=== PATIENT | male | born 1965 | race Caucasian/White ===

== ENCOUNTER 2018-04-11 20:21 | Inpatient (IN) | payer MEDICAID ==
[~2018-04-11] VITALS: Ht 182.9 cm; Wt 89.0 kg
[~2018-04-11 20:21] MED LIST: ACET-2119 PO; GUAI-178 PO; GUAI600T45 PO; LEVA15HF4 INH
[2018-04-11] MEDS ORDERED: LORazepam 2 mg/ml vial IV ONE (20:50)
[2018-04-11] MEDS ORDERED: normal saline 1000ML IV soln IVB ONE (20:50)
[2018-04-11 21:02] LABS: MEAN CORPUSCULAR HGB CONC 33.8 % (33.0-36.5); MONOCYTES # (AUTO) 0.7 X10'3 (0-0.9); NEUTROPHILS # (AUTO) 10.9 X10'3 (1.8-7.7)
[2018-04-11 21:09] LABS: BASOPHILS # (AUTO) 0.1 X10'3 (0-0.2); EOSINOPHILS # (AUTO) 0.1 X10'3 (0-0.9); HEMATOCRIT 43.5 % (42.0-52.0); HEMOGLOBIN 14.7 g/dl (14.0-17.9); LYMPHOCYTES % (AUTO) 14.7 % (21-51); MEAN CORPUSCULAR HEMOGLOBIN 30.2 PG (27.0-31.0); MEAN CORPUSCULAR VOLUME 89.3 FL (78-98); MEAN PLATELET VOLUME 8.5 FL (7.4-10.4); MONOCYTES % (AUTO) 5.1 % (2-12); NEUTROPHILS % (AUTO) 78.2 % (42-75); PLATELET COUNT 420 X10'3 (140-440); RED BLOOD COUNT 4.87 X10'6 (4.70-6.10); RED CELL DISTRIBUTION WIDTH 13.7 % (11.5-14.5); WHITE BLOOD COUNT 13.9 X10'3 (4.5-11.0)
[2018-04-11 21:14] LABS: D-DIMER 2.19 MG/L FEU (0-0.50); INR 1.5 INR; PARTIAL THROMBOPLASTIN TIME 30 SECONDS (22-32); PROTHROMBIN TIME 15.4 SECONDS (9.0-12.0)
[2018-04-11 21:17] LABS: ALANINE AMINOTRANSFERASE 202 U/L (12-78); ALBUMIN 2.9 G/DL (3.4-5.0); ALBUMIN/GLOBULIN RATIO 0.7 (1.1-1.5); ALKALINE PHOSPHATASE 116 IU/L (46-116); ANION GAP 14 (8-16); ASPARTATE AMINO TRANSFERASE 166 U/L (10-37); BILIRUBIN,TOTAL 1.5 MG/DL (0.1-1.0); BLOOD UREA NITROGEN 18 MG/DL (7-18); BUN/CREATININE RATIO 12.1 (5.4-32.0); CALCIUM 8.5 MG/DL (8.5-10.1); CHLORIDE 103 MMOL/L (99-107); CREATININE 1.49 MG/DL (0.60-1.10); GLUCOSE 94 MG/DL (70-104); POTASSIUM 5.2 MMOL/L (3.5-5.1); SODIUM 137 MMOL/L (135-145); TOTAL CARBON DIOXIDE 19.7 MMOL/L (24-32); eGFR 50 ML/MIN
[2018-04-11 21:35] LABS: URINE AMPHETAMINE SCREEN NEGATIVE (Neg); URINE BARBITUATE SCREEN NEGATIVE (Neg); URINE BENZODIAZEPINES SCREEN NEGATIVE (Neg); URINE CANNABINOID SCREEN POSITIVE (Neg); URINE COCAINE SCREEN NEGATIVE (Neg); URINE METHADONE SCREEN NEGATIVE (Neg); URINE OPIATE SCREEN NEGATIVE (Neg); URINE PHENCYCLIDINE SCREEN NEGATIVE (Neg)
[2018-04-11 21:38] LABS: CLARITY,URINE CLEAR (Clear); COLOR,URINE YELLOW (Yellow); GLUCOSE, URINE NEGATIVE (Neg); KETONES,URINE NEGATIVE (Neg); LEUKOCYTE ESTERASE ,URINE NEGATIVE (Neg); NITRITES, URINE NEGATIVE (Neg); OCCULT BLOOD,URINE TRACE-INTACT (Neg); PH,URINE 5.5 (4.8-8.0); PROTEIN,URINE NEGATIVE (Neg); UROBILINOGEN,URINE 0.2 E.U/dL (0.2-1.0)
[2018-04-11 21:40] LABS: UA COLLECTION TYPE VOIDED
[2018-04-11 21:49] LABS: BACTERIA,URINE FEW /HPF (Neg); RBC,URINE 0-2 /HPF (0-2); SQUAMOUS EPITHELIAL CELL,UR FEW /LPF (FEW); URIC ACID CRYSTALS 3+ /HPF (NEGATIVE); WBC,URINE 0-4 /HPF (0-4)
[2018-04-11] MEDS ORDERED: iohexol 350MG/ML 100ml bottle IV ONE (22:13)
[2018-04-11] MEDS ORDERED: furosemide 10 MG/1 ML 10ml inj IV ONE (23:20)
[2018-04-11] MEDS ORDERED: piperacillin/tazo 3.375gm/50ml 50 ML IV ONE (23:35)
[2018-04-12 00:48] LABS: MAGNESIUM 1.7 MG/DL (1.5-2.4)
[2018-04-12] MEDS ORDERED: ondansetron/PF 4mg/2ml inj IV PRN (02:00)
[2018-04-12] MEDS ORDERED: acetaminophen 325mg tablet PO PRN (02:00)
[2018-04-12] MEDS ORDERED: aspirin 325mg tablet PO ONE (02:30)
[2018-04-12] MEDS: piperacillin/tazo 3.375gm/50ml 50 ML IV SCH ×2 (02:41→08:02)
[2018-04-12] MEDS: furosemide 10 MG/1 ML 10ml inj IV SCH ×3 (02:41→19:51)
[2018-04-12 03:20] LABS: ABG BASE EXCESS -4.6 mmol/L (-2.0-3.0); ABG HCO3 18.2 mmol/L (22.0-26.0); ABG OXYGEN SATURATION 89.5 % (95-98); ABG PCO2 (T) 27.8 mmHg (35.0-48.0); ABG PH (T) 7.433 (7.350-7.450); ABG PO2 (T) 59.9 mmHg (83-108); ALLEN'S TEST Positive; FMetHb 0.1 % (0.3-1.12); FO2Hb 88.5 % (94-100); PATIENT TEMPERATURE 36.8; TOTAL HEMOGLOBIN 14.9 G/dl (14.0-18.0)
[2018-04-12] MEDS: enoxaparin 40mg/0.4ml syringe SUBCUT SCH (08:03)
[2018-04-12 09:06] LABS: ANION GAP 14 (8-16); BILIRUBIN,TOTAL 1.4 MG/DL (0.1-1.0); BLOOD UREA NITROGEN 18 MG/DL (7-18); BUN/CREATININE RATIO 10.8 (5.4-32.0); CALCIUM 8.4 MG/DL (8.5-10.1); CHLORIDE 102 MMOL/L (99-107); CREATININE 1.67 MG/DL (0.60-1.10); GLUCOSE 86 MG/DL (70-104); POTASSIUM 3.9 MMOL/L (3.5-5.1); SODIUM 138 MMOL/L (135-145); TOTAL CARBON DIOXIDE 21.6 MMOL/L (24-32); eGFR 44 ML/MIN
[2018-04-12 09:07] LABS: ALANINE AMINOTRANSFERASE 210 U/L (12-78); ALKALINE PHOSPHATASE 121 IU/L (46-116); ASPARTATE AMINO TRANSFERASE 140 U/L (10-37)
[2018-04-12 09:07] LABS: HEMATOCRIT 42.3 % (42.0-52.0); HEMOGLOBIN 14.4 g/dl (14.0-17.9); MEAN CORPUSCULAR HEMOGLOBIN 30.6 PG (27.0-31.0); MEAN CORPUSCULAR HGB CONC 34.1 % (33.0-36.5); MEAN CORPUSCULAR VOLUME 89.8 FL (78-98); MEAN PLATELET VOLUME 8.1 FL (7.4-10.4); PLATELET COUNT 355 X10'3 (140-440); RED BLOOD COUNT 4.71 X10'6 (4.70-6.10); RED CELL DISTRIBUTION WIDTH 13.9 % (11.5-14.5); WHITE BLOOD COUNT 12.1 X10'3 (4.5-11.0)
[2018-04-12 09:16] LABS: ALBUMIN/GLOBULIN RATIO 0.7 (1.1-1.5); TOTAL PROTEIN 7.3 G/DL (6.4-8.2)
[2018-04-12 09:47] LABS: PLATELET ESTIMATE NORMAL; TOTAL CELLS COUNTED 100
[2018-04-12 14:00] VITALS: BP 121/92
[2018-04-12 15:00] VITALS: BP 96/70
[2018-04-12] MEDS: levoFLOXACIN-Levaquin 500mg/D5 100 ML IV SCH (15:03)
[2018-04-12] MEDS: pantoprazole 40mg Tablet.DR PO SCH (15:03)
[2018-04-12] MEDS: lisinopril 2.5mg tablet PO SCH (16:05)
[2018-04-12] MEDS: aspirin 81mg tablet.DR PO SCH (16:05)
[2018-04-12] MEDS ORDERED: NO HOME MEDS (16:09)
[2018-04-12] MEDS: potassium Cl 20 mEq SR tablet PO SCH (17:42)
[2018-04-12 18:00] VITALS: BP 108/80
[2018-04-12] MEDS: lactobacillus rhamnosus 10,000 MMU CELLS/CAPSULE PO SCH (19:40)
[2018-04-12] MEDS: metoprolol tartrate 12.5mg (1/2 tablet) PO SCH (19:44)
[2018-04-12 22:00] VITALS: BP 105/72
[2018-04-13 02:00] VITALS: BP 107/74
[2018-04-13 05:02] LABS: BASOPHILS # (AUTO) 0.1 X10'3 (0-0.2); BASOPHILS % (AUTO) 0.9 % (0-1); EOSINOPHILS # (AUTO) 0.2 X10'3 (0-0.9); EOSINOPHILS % (AUTO) 2.1 % (0-6); HEMATOCRIT 42.4 % (42.0-52.0); HEMOGLOBIN 14.2 g/dl (14.0-17.9); LYMPHOCYTES # (AUTO) 2.4 X10'3 (1.1-4.8); LYMPHOCYTES % (AUTO) 22.9 % (21-51); MEAN CORPUSCULAR HEMOGLOBIN 30.4 PG (27.0-31.0); MEAN CORPUSCULAR HGB CONC 33.4 % (33.0-36.5); MEAN CORPUSCULAR VOLUME 91.1 FL (78-98); MEAN PLATELET VOLUME 8.4 FL (7.4-10.4); MONOCYTES # (AUTO) 0.8 X10'3 (0-0.9); NEUTROPHILS % (AUTO) 66.1 % (42-75); PLATELET COUNT 339 X10'3 (140-440); RED BLOOD COUNT 4.66 X10'6 (4.70-6.10); WHITE BLOOD COUNT 10.6 X10'3 (4.5-11.0)
[2018-04-13 05:35] LABS: ALBUMIN 2.4 G/DL (3.4-5.0); ANION GAP 12 (8-16); BLOOD UREA NITROGEN 23 MG/DL (7-18); CALCIUM 8.8 MG/DL (8.5-10.1); CHLORIDE 101 MMOL/L (99-107); CREATININE 1.44 MG/DL (0.60-1.10); GLUCOSE 105 MG/DL (70-104); POTASSIUM 3.5 MMOL/L (3.5-5.1); SODIUM 140 MMOL/L (135-145); TOTAL CARBON DIOXIDE 26.8 MMOL/L (24-32); eGFR 52 ML/MIN
[2018-04-13 06:00] VITALS: BP 111/79
[2018-04-13] MEDS: levoFLOXACIN-Levaquin 500mg/D5 100 ML IV SCH (07:18)
[2018-04-13] MEDS: aspirin 81mg tablet.DR PO SCH (07:19)
[2018-04-13] MEDS: lactobacillus rhamnosus 10,000 MMU CELLS/CAPSULE PO SCH ×2 (07:19→20:07)
[2018-04-13] MEDS: potassium Cl 20 mEq SR tablet PO SCH ×2 (07:19→20:09)
[2018-04-13] MEDS: furosemide 10 MG/1 ML 10ml inj IV SCH ×2 (07:19→22:20)
[2018-04-13] MEDS: pantoprazole 40mg Tablet.DR PO SCH (07:19)
[2018-04-13] MEDS: metoprolol tartrate 12.5mg (1/2 tablet) PO SCH ×2 (07:19→20:00)
[2018-04-13] MEDS: lisinopril 2.5mg tablet PO SCH (07:19)
[2018-04-13] MEDS: enoxaparin 40mg/0.4ml syringe SUBCUT SCH (07:20)
[2018-04-13 11:00] VITALS: BP 96/70
[2018-04-13 15:00] VITALS: BP 100/70
[2018-04-13] MEDS ORDERED: nitroGLYCERIN 0.4mg SUBLingual tab SL PRN (15:00)
[2018-04-13] MEDS ORDERED: CAFFEINE CITRATE 60 MG/3 ML injection vial IV PRN (15:00)
[2018-04-13] MEDS ORDERED: metoprolol tartrate 1mg/ml inj IV PRN (15:00)
[2018-04-13] MEDS ORDERED: regadenoson 0.4mg/5ml syringe IV ONE (15:00)
[2018-04-13] MEDS: vancomycin inj 1,250 MG in normal saline 250ml IV soln 250 ML IV SCH (16:29)
[2018-04-13 18:00] VITALS: BP 116/80
[2018-04-13] MEDS: neomy sulf/bacitrac zn/polymixin b oint 14.2 gm tube TP SCH (21:00)
[2018-04-13 22:00] VITALS: BP 107/76
[2018-04-14] VITALS (14 sets, daily range): BP systolic 95–116; BP diastolic 46–83
[2018-04-14] MEDS: vancomycin inj 1,250 MG in normal saline 250ml IV soln 250 ML IV SCH ×2 (04:24→15:12)
[2018-04-14 05:42] LABS: BASOPHILS # (AUTO) 0.1 X10'3 (0-0.2); BASOPHILS % (AUTO) 0.6 % (0-1); EOSINOPHILS # (AUTO) 0.2 X10'3 (0-0.9); EOSINOPHILS % (AUTO) 2.1 % (0-6); HEMATOCRIT 42.5 % (42.0-52.0); HEMOGLOBIN 14.3 g/dl (14.0-17.9); LYMPHOCYTES # (AUTO) 2.5 X10'3 (1.1-4.8); LYMPHOCYTES % (AUTO) 22.7 % (21-51); MEAN CORPUSCULAR HEMOGLOBIN 30.5 PG (27.0-31.0); MEAN CORPUSCULAR HGB CONC 33.6 % (33.0-36.5); MEAN CORPUSCULAR VOLUME 90.7 FL (78-98); MEAN PLATELET VOLUME 8.4 FL (7.4-10.4); NEUTROPHILS # (AUTO) 7.3 X10'3 (1.8-7.7); NEUTROPHILS % (AUTO) 65.6 % (42-75); PLATELET COUNT 372 X10'3 (140-440); RED BLOOD COUNT 4.68 X10'6 (4.70-6.10); RED CELL DISTRIBUTION WIDTH 14.4 % (11.5-14.5); WHITE BLOOD COUNT 11.2 X10'3 (4.5-11.0)
[2018-04-14 06:17] LABS: ALBUMIN 2.5 G/DL (3.4-5.0); ANION GAP 11 (8-16); BLOOD UREA NITROGEN 22 MG/DL (7-18); BUN/CREATININE RATIO 13.4 (5.4-32.0); CALCIUM 8.9 MG/DL (8.5-10.1); CHLORIDE 102 MMOL/L (99-107); CREATININE 1.64 MG/DL (0.60-1.10); GLUCOSE 86 MG/DL (70-104); POTASSIUM 3.6 MMOL/L (3.5-5.1); SODIUM 142 MMOL/L (135-145); TOTAL CARBON DIOXIDE 28.8 MMOL/L (24-32); eGFR 45 ML/MIN
[2018-04-14] MEDS: pantoprazole 40mg Tablet.DR PO SCH (07:39)
[2018-04-14] MEDS: lactobacillus rhamnosus 10,000 MMU CELLS/CAPSULE PO SCH ×2 (07:40→19:32)
[2018-04-14] MEDS: aspirin 81mg tablet.DR PO SCH (07:40)
[2018-04-14] MEDS: potassium Cl 20 mEq SR tablet PO SCH ×2 (07:41→17:32)
[2018-04-14] MEDS: enoxaparin 40mg/0.4ml syringe SUBCUT SCH (07:42)
[2018-04-14] MEDS: furosemide 10 MG/1 ML 10ml inj IV SCH ×2 (08:00→20:51)
[2018-04-14] MEDS: lisinopril 2.5mg tablet PO SCH (08:00)
[2018-04-14] MEDS: metoprolol tartrate 12.5mg (1/2 tablet) PO SCH ×2 (08:00→19:37)
[2018-04-14] MEDS: neomy sulf/bacitrac zn/polymixin b oint 14.2 gm tube TP SCH ×3 (08:00→21:00)
[2018-04-14 09:58] LABS: ALANINE AMINOTRANSFERASE 126 U/L (12-78); ALBUMIN 2.8 G/DL (3.4-5.0); ALBUMIN/GLOBULIN RATIO 0.6 (1.1-1.5); ALKALINE PHOSPHATASE 95 IU/L (46-116); ASPARTATE AMINO TRANSFERASE 51 U/L (10-37); BILIRUBIN,DIRECT 0.2 MG/DL (0-0.3); BILIRUBIN,TOTAL 0.6 MG/DL (0.1-1.0); TOTAL PROTEIN 7.3 G/DL (6.4-8.2)
[2018-04-14] MEDS ORDERED: pneumococcal 23-VAL P-sac vacc 25 mcg/0.5ml vial IMVAC ONE (10:00)
[2018-04-14] MEDS ORDERED: regadenoson 0.4mg/5ml syringe IV ONE (10:38)
[2018-04-14] MEDS ORDERED: CAFFEINE CITRATE 60 MG/3 ML injection vial IV ONE (10:38)
[2018-04-14] MEDS: levoFLOXACIN 500mg tablet PO SCH (11:00)
[2018-04-15 02:00] VITALS: BP 97/66
[2018-04-15] MEDS ORDERED: VANCOMYCIN LEVEL IV ONE (03:30)
[2018-04-15] MEDS: vancomycin inj 1,250 MG in normal saline 250ml IV soln 250 ML IV SCH ×2 (04:59→16:21)
[2018-04-15 06:04] LABS: BASOPHILS # (AUTO) 0.1 X10'3 (0-0.2); BASOPHILS % (AUTO) 0.7 % (0-1); EOSINOPHILS # (AUTO) 0.2 X10'3 (0-0.9); HEMATOCRIT 46.8 % (42.0-52.0); HEMOGLOBIN 15.6 g/dl (14.0-17.9); LYMPHOCYTES # (AUTO) 2.2 X10'3 (1.1-4.8); LYMPHOCYTES % (AUTO) 19.3 % (21-51); MEAN CORPUSCULAR HEMOGLOBIN 30.3 PG (27.0-31.0); MEAN CORPUSCULAR HGB CONC 33.3 % (33.0-36.5); MEAN CORPUSCULAR VOLUME 90.9 FL (78-98); MEAN PLATELET VOLUME 8.6 FL (7.4-10.4); MONOCYTES # (AUTO) 0.7 X10'3 (0-0.9); MONOCYTES % (AUTO) 6.4 % (2-12); NEUTROPHILS # (AUTO) 8.2 X10'3 (1.8-7.7); NEUTROPHILS % (AUTO) 71.6 % (42-75); PLATELET COUNT 386 X10'3 (140-440); RED BLOOD COUNT 5.15 X10'6 (4.70-6.10); RED CELL DISTRIBUTION WIDTH 14.5 % (11.5-14.5); WHITE BLOOD COUNT 11.5 X10'3 (4.5-11.0)
[2018-04-15 06:21] LABS: ALANINE AMINOTRANSFERASE 103 U/L (12-78); ALBUMIN 2.8 G/DL (3.4-5.0); ALBUMIN/GLOBULIN RATIO 0.6 (1.1-1.5); ALKALINE PHOSPHATASE 86 IU/L (46-116); ANION GAP 10 (8-16); ASPARTATE AMINO TRANSFERASE 40 U/L (10-37); BILIRUBIN,TOTAL 0.5 MG/DL (0.1-1.0); BLOOD UREA NITROGEN 31 MG/DL (7-18); BUN/CREATININE RATIO 17.7 (5.4-32.0); CALCIUM 9.4 MG/DL (8.5-10.1); CHLORIDE 99 MMOL/L (99-107); CREATININE 1.75 MG/DL (0.60-1.10); GLUCOSE 89 MG/DL (70-104); SODIUM 139 MMOL/L (135-145); TOTAL CARBON DIOXIDE 30.5 MMOL/L (24-32); TOTAL PROTEIN 7.5 G/DL (6.4-8.2); VANCOMYCIN,TROUGH 14.4 UG/ML (6.0-14.0); eGFR 41 ML/MIN
[2018-04-15 07:00] VITALS: BP 111/75
[2018-04-15] MEDS: furosemide 10 MG/1 ML 10ml inj IV SCH (07:40)
[2018-04-15] MEDS: lactobacillus rhamnosus 10,000 MMU CELLS/CAPSULE PO SCH ×2 (07:42→20:04)
[2018-04-15] MEDS: pantoprazole 40mg Tablet.DR PO SCH (07:42)
[2018-04-15] MEDS: enoxaparin 40mg/0.4ml syringe SUBCUT SCH (07:42)
[2018-04-15] MEDS: aspirin 81mg tablet.DR PO SCH (07:42)
[2018-04-15] MEDS: metoprolol tartrate 12.5mg (1/2 tablet) PO SCH ×2 (08:00→09:19)
[2018-04-15] MEDS: neomy sulf/bacitrac zn/polymixin b oint 14.2 gm tube TP SCH ×3 (08:53→20:05)
[2018-04-15] MEDS: lisinopril 2.5mg tablet PO SCH (08:55)
[2018-04-15] MEDS: potassium Cl 20 mEq SR tablet PO SCH ×2 (09:19→16:38)
[2018-04-15 11:00] VITALS: BP 111/76
[2018-04-15] MEDS: levoFLOXACIN 500mg tablet PO SCH (12:27)
[2018-04-15 15:00] VITALS: BP 103/71
[2018-04-15 19:00] VITALS: BP 102/46
[2018-04-15] MEDS ORDERED: furosemide 10 MG/1 ML 10ml inj IV SCH (20:00)
[2018-04-15] MEDS: metoprolol tartrate 25mg tablet PO SCH (20:04)
[2018-04-15 23:00] VITALS: BP 96/62
[2018-04-16] VITALS (7 sets, daily range): BP systolic 87–104; BP diastolic 54–75
[2018-04-16] MEDS: vancomycin inj 1,250 MG in normal saline 250ml IV soln 250 ML IV SCH (04:07)
[2018-04-16 06:36] LABS: ALANINE AMINOTRANSFERASE 85 U/L (12-78); ALBUMIN 2.8 G/DL (3.4-5.0); ALBUMIN/GLOBULIN RATIO 0.6 (1.1-1.5); ALKALINE PHOSPHATASE 89 IU/L (46-116); ANION GAP 10 (8-16); ASPARTATE AMINO TRANSFERASE 39 U/L (10-37); BILIRUBIN,TOTAL 0.4 MG/DL (0.1-1.0); BLOOD UREA NITROGEN 39 MG/DL (7-18); BUN/CREATININE RATIO 27.3 (5.4-32.0); CALCIUM 8.6 MG/DL (8.5-10.1); CHLORIDE 100 MMOL/L (99-107); CREATININE 1.43 MG/DL (0.60-1.10); GLUCOSE 103 MG/DL (70-104); POTASSIUM 4.3 MMOL/L (3.5-5.1); SODIUM 136 MMOL/L (135-145); TOTAL CARBON DIOXIDE 25.8 MMOL/L (24-32); TOTAL PROTEIN 7.4 G/DL (6.4-8.2); eGFR 52 ML/MIN
[2018-04-16 07:02] LABS: BASOPHILS # (AUTO) 0.1 X10'3 (0-0.2); BASOPHILS % (AUTO) 0.7 % (0-1); EOSINOPHILS # (AUTO) 0.3 X10'3 (0-0.9); EOSINOPHILS % (AUTO) 2.8 % (0-6); HEMATOCRIT 48.6 % (42.0-52.0); HEMOGLOBIN 15.9 g/dl (14.0-17.9); LYMPHOCYTES # (AUTO) 3.2 X10'3 (1.1-4.8); LYMPHOCYTES % (AUTO) 29.1 % (21-51); MEAN CORPUSCULAR HGB CONC 32.6 % (33.0-36.5); MEAN CORPUSCULAR VOLUME 91.9 FL (78-98); MEAN PLATELET VOLUME 8.5 FL (7.4-10.4); MONOCYTES # (AUTO) 0.8 X10'3 (0-0.9); MONOCYTES % (AUTO) 7.6 % (2-12); NEUTROPHILS # (AUTO) 6.6 X10'3 (1.8-7.7); NEUTROPHILS % (AUTO) 59.8 % (42-75); PLATELET COUNT 418 X10'3 (140-440); RED BLOOD COUNT 5.29 X10'6 (4.70-6.10); RED CELL DISTRIBUTION WIDTH 14.4 % (11.5-14.5)
[2018-04-16] MEDS: pantoprazole 40mg Tablet.DR PO SCH (08:07)
[2018-04-16] MEDS: furosemide 20 MG/2 ML vial IV SCH ×2 (08:07→20:00)
[2018-04-16] MEDS: potassium Cl 20 mEq SR tablet PO SCH ×2 (08:07→17:42)
[2018-04-16] MEDS: metoprolol tartrate 25mg tablet PO SCH ×2 (08:07→20:00)
[2018-04-16] MEDS: lactobacillus rhamnosus 10,000 MMU CELLS/CAPSULE PO SCH ×2 (08:07→19:48)
[2018-04-16] MEDS: lisinopril 2.5mg tablet PO SCH (08:07)
[2018-04-16] MEDS: aspirin 81mg tablet.DR PO SCH (08:07)
[2018-04-16] MEDS: neomy sulf/bacitrac zn/polymixin b oint 14.2 gm tube TP SCH ×3 (08:08→21:27)
[2018-04-16] MEDS: enoxaparin 40mg/0.4ml syringe SUBCUT SCH (08:08)
[2018-04-16] MEDS: levoFLOXACIN 500mg tablet PO SCH (11:42)
[2018-04-17 03:00] VITALS: BP 106/62
[2018-04-17 05:48] LABS: ALANINE AMINOTRANSFERASE 71 U/L (12-78); ALBUMIN 2.8 G/DL (3.4-5.0); ALBUMIN/GLOBULIN RATIO 0.7 (1.1-1.5); ALKALINE PHOSPHATASE 82 IU/L (46-116); ANION GAP 10 (8-16); ASPARTATE AMINO TRANSFERASE 30 U/L (10-37); BILIRUBIN,TOTAL 0.3 MG/DL (0.1-1.0); BLOOD UREA NITROGEN 37 MG/DL (7-18); BUN/CREATININE RATIO 25.5 (5.4-32.0); CALCIUM 8.7 MG/DL (8.5-10.1); CHLORIDE 101 MMOL/L (99-107); CREATININE 1.45 MG/DL (0.60-1.10); GLUCOSE 102 MG/DL (70-104); POTASSIUM 4.4 MMOL/L (3.5-5.1); SODIUM 138 MMOL/L (135-145); TOTAL CARBON DIOXIDE 27.1 MMOL/L (24-32); TOTAL PROTEIN 7.1 G/DL (6.4-8.2); eGFR 52 ML/MIN
[2018-04-17 06:30] VITALS: BP 106/75
[2018-04-17] MEDS: furosemide 20 MG/2 ML vial IV SCH ×2 (07:49→19:33)
[2018-04-17] MEDS: metoprolol tartrate 25mg tablet PO SCH ×2 (07:49→19:33)
[2018-04-17] MEDS: aspirin 81mg tablet.DR PO SCH (07:49)
[2018-04-17] MEDS: lactobacillus rhamnosus 10,000 MMU CELLS/CAPSULE PO SCH ×2 (07:49→19:34)
[2018-04-17] MEDS: enoxaparin 40mg/0.4ml syringe SUBCUT SCH (07:49)
[2018-04-17] MEDS: pantoprazole 40mg Tablet.DR PO SCH (07:49)
[2018-04-17] MEDS: lisinopril 2.5mg tablet PO SCH (07:49)
[2018-04-17] MEDS: potassium Cl 20 mEq SR tablet PO SCH ×2 (07:49→17:44)
[2018-04-17] MEDS: neomy sulf/bacitrac zn/polymixin b oint 14.2 gm tube TP SCH ×3 (08:16→21:15)
[2018-04-17 11:00] VITALS: BP 101/76
[2018-04-17] MEDS: levoFLOXACIN 500mg tablet PO SCH (11:26)
[2018-04-17 15:00] VITALS: BP 99/69
[2018-04-17 19:00] VITALS: BP 104/72
[2018-04-17] MEDS ORDERED: lactobacillus rhamnosus 10,000 MMU CELLS/CAPSULE PO SCH (20:00)
[2018-04-17 23:00] VITALS: BP 95/61
[2018-04-18 03:00] VITALS: BP 102/71
[2018-04-18 06:00] VITALS: BP 106/73
[2018-04-18 07:27] LABS: ALANINE AMINOTRANSFERASE 67 U/L (12-78); ALBUMIN 3.1 G/DL (3.4-5.0); ALBUMIN/GLOBULIN RATIO 0.7 (1.1-1.5); ALKALINE PHOSPHATASE 82 IU/L (46-116); ANION GAP 9 (8-16); ASPARTATE AMINO TRANSFERASE 30 U/L (10-37); BILIRUBIN,TOTAL 0.4 MG/DL (0.1-1.0); BLOOD UREA NITROGEN 43 MG/DL (7-18); CALCIUM 9.3 MG/DL (8.5-10.1); CHLORIDE 101 MMOL/L (99-107); CREATININE 1.79 MG/DL (0.60-1.10); GLUCOSE 92 MG/DL (70-104); POTASSIUM 4.5 MMOL/L (3.5-5.1); SODIUM 138 MMOL/L (135-145); TOTAL CARBON DIOXIDE 27.7 MMOL/L (24-32); TOTAL PROTEIN 7.7 G/DL (6.4-8.2); eGFR 40 ML/MIN
[2018-04-18] MEDS: metoprolol tartrate 25mg tablet PO SCH (07:53)
[2018-04-18] MEDS: aspirin 81mg tablet.DR PO SCH (07:53)
[2018-04-18] MEDS: lisinopril 2.5mg tablet PO SCH (07:53)
[2018-04-18] MEDS: lactobacillus rhamnosus 10,000 MMU CELLS/CAPSULE PO SCH (07:54)
[2018-04-18] MEDS: furosemide 20 MG/2 ML vial IV SCH (07:54)
[2018-04-18] MEDS: potassium Cl 20 mEq SR tablet PO SCH ×2 (07:54→17:30)
[2018-04-18] MEDS: pantoprazole 40mg Tablet.DR PO SCH (07:54)
[2018-04-18] MEDS: enoxaparin 40mg/0.4ml syringe SUBCUT SCH (07:54)
[2018-04-18] MEDS: neomy sulf/bacitrac zn/polymixin b oint 14.2 gm tube TP SCH ×2 (08:00→13:47)
[2018-04-18 11:00] VITALS: BP 109/71
[2018-04-18] MEDS: levoFLOXACIN 500mg tablet PO SCH (11:08)
[2018-04-18 15:00] VITALS: BP 110/63
[2018-04-18] MEDS ORDERED: METO25TA6 PO (15:09)
[2018-04-18] MEDS ORDERED: LEVO500T89 PO (15:09)
[2018-04-18] MEDS ORDERED: NITR0.4T51 SL (15:09)
[2018-04-18] MEDS ORDERED: FURO-150 PO (15:09)
[2018-04-18] MEDS ORDERED: LISI2.5T2 PO (15:09)
[2018-04-18] MEDS ORDERED: ASPI-1071 PO (15:09)
[2018-04-18] MEDS ORDERED: NEOM28.37 TP (15:09)
== END 2018-04-18 18:12 | disposition home or self-care (01) | DRG 720 ==
LOC: ER 20:22 → ED HOLD 04-12 01:58 → PCU 3S 04-12 12:08
PROVIDERS: ADMIT Internal Medicine; ATTEND Internal Medicine
PROC: B32T1ZZ Computerized Tomography (CT Scan) of Left Pulmonary Artery using Low Osmolar Contrast (ICD-10-PCS; 2018-04-11)
PROC: B3201ZZ Computerized Tomography (CT Scan) of Thoracic Aorta using Low Osmolar Contrast (ICD-10-PCS; 2018-04-11)
PROC: B32S1ZZ Computerized Tomography (CT Scan) of Right Pulmonary Artery using Low Osmolar Contrast (ICD-10-PCS; 2018-04-11)
PROC: 5A09357 Assistance with Respiratory Ventilation, Less than 24 Consecutive Hours, Continuous Positive Airway Pressure (ICD-10-PCS; principal; 2018-04-12)
PROC: 4A02XM4 Measurement of Cardiac Total Activity, External Approach (ICD-10-PCS; 2018-04-14)
PROC: 3E033HZ Introduction of Radioactive Substance into Peripheral Vein, Percutaneous Approach (ICD-10-PCS; 2018-04-14)
DX: A41.9 Sepsis, unspecified organism (principal); I50.23 Acute on chronic systolic (congestive) heart failure; N17.9 Acute kidney failure, unspecified; K21.9 Gastro-esophageal reflux disease without esophagitis; K52.9 Noninfective gastroenteritis and colitis, unspecified; E87.5 Hyperkalemia; F12.90 Cannabis use, unspecified, uncomplicated; Z60.2 Problems related to living alone; R94.5 Abnormal results of liver function studies; Z79.82 Long term (current) use of aspirin; Z87.01 Personal history of pneumonia (recurrent); Z87.442 Personal history of urinary calculi; Z23 Encounter for immunization; Z79.899 Other long term (current) drug therapy
CPT/HCPCS: 36415; 36600; 71045; 71046; 71275; 78452; 80048; 80053; 80076; 80202; 80305; 81001; 82803; 83605; 83690; 83735; 83880; 84145; 84484; 85018; 85025; 85379; 85610; 85730; 87040; 87070; 87075; 87077; 87102; 87186; 93005; 93017; 93306; 93970; 94660; 94760; 96361; 96374; 96375; 99285; A6250; A6449; A9500; J1650; J1940; J1956; J2060; J2543; J3370; J7030; Q9967

== ENCOUNTER 2018-04-23 20:59 | Inpatient (IN) | payer MEDICAID ==
[~2018-04-23] VITALS: Ht 182.9 cm; Wt 79.0 kg
[~2018-04-23 20:59] MED LIST changes: -ACET-2119 PO; +ASPI-1071 PO; +FURO-150 PO; -GUAI-178 PO; -GUAI600T45 PO; -LEVA15HF4 INH; +LEVO500T89 PO; +LISI2.5T2 PO; +METO25TA6 PO; +NEOM28.37 TP; +NITR0.4T51 SL; +NO HOME MEDS
[2018-04-23] MEDS ORDERED: LORazepam 2 mg/ml vial IV ONE (21:20)
[2018-04-23] MEDS ORDERED: ondansetron/PF 4mg/2ml inj IV ONE (21:20)
[2018-04-23 21:22] LABS: BASOPHILS # (AUTO) 0.1 X10'3 (0-0.2); BASOPHILS % (AUTO) 1.4 % (0-1); EOSINOPHILS % (AUTO) 0.4 % (0-6); HEMATOCRIT 43.6 % (42.0-52.0); HEMOGLOBIN 14.6 g/dl (14.0-17.9); LYMPHOCYTES # (AUTO) 2.4 X10'3 (1.1-4.8); MEAN CORPUSCULAR HEMOGLOBIN 30.2 PG (27.0-31.0); MEAN CORPUSCULAR HGB CONC 33.6 % (33.0-36.5); MEAN CORPUSCULAR VOLUME 89.9 FL (78-98); MEAN PLATELET VOLUME 8.7 FL (7.4-10.4); MONOCYTES # (AUTO) 0.8 X10'3 (0-0.9); MONOCYTES % (AUTO) 7.6 % (2-12); NEUTROPHILS # (AUTO) 6.7 X10'3 (1.8-7.7); NEUTROPHILS % (AUTO) 66.6 % (42-75); PLATELET COUNT 197 X10'3 (140-440); RED BLOOD COUNT 4.85 X10'6 (4.70-6.10); RED CELL DISTRIBUTION WIDTH 13.6 % (11.5-14.5)
[2018-04-23 21:34] LABS: INR 1.3 INR; PARTIAL THROMBOPLASTIN TIME 26 SECONDS (22-32); PROTHROMBIN TIME 13.1 SECONDS (9.0-12.0)
[2018-04-23 21:38] LABS: ALANINE AMINOTRANSFERASE 191 U/L (12-78); ALBUMIN 3.4 G/DL (3.4-5.0); ALBUMIN/GLOBULIN RATIO 0.8 (1.1-1.5); ALKALINE PHOSPHATASE 142 IU/L (46-116); ANION GAP 11 (8-16); ASPARTATE AMINO TRANSFERASE 143 U/L (10-37); BILIRUBIN,TOTAL 1.3 MG/DL (0.1-1.0); BLOOD UREA NITROGEN 26 MG/DL (7-18); CALCIUM 8.9 MG/DL (8.5-10.1); CHLORIDE 100 MMOL/L (99-107); CREATININE 1.62 MG/DL (0.60-1.10); GLUCOSE 124 MG/DL (70-104); POTASSIUM 4.6 MMOL/L (3.5-5.1); SODIUM 135 MMOL/L (135-145); TOTAL PROTEIN 7.6 G/DL (6.4-8.2); eGFR 45 ML/MIN
[2018-04-23] MEDS ORDERED: normal saline 1000ML IV soln IVB ONE (21:55)
[2018-04-23 22:03] LABS: URINE AMPHETAMINE SCREEN NEGATIVE (Neg); URINE BARBITUATE SCREEN NEGATIVE (Neg); URINE BENZODIAZEPINES SCREEN NEGATIVE (Neg); URINE CANNABINOID SCREEN POSITIVE (Neg); URINE COCAINE SCREEN NEGATIVE (Neg); URINE METHADONE SCREEN NEGATIVE (Neg); URINE OPIATE SCREEN POSITIVE (Neg); URINE PHENCYCLIDINE SCREEN NEGATIVE (Neg)
[2018-04-23] MEDS ORDERED: metoprolol tartrate 1mg/ml inj IV ONE (22:40)
[2018-04-23] MEDS ORDERED: ONDA4TAB9 SL (23:00)
[2018-04-24] MEDS ORDERED: potassium Cl 20 mEq SR tablet PO PRN ×2 (00:25)
[2018-04-24] MEDS ORDERED: magnesium 4gm in 100ml NS 100 ML IV PRN (00:25)
[2018-04-24] MEDS ORDERED: nitroGLYCERIN 0.4mg SUBLingual tab SL PRN (00:25)
[2018-04-24] MEDS ORDERED: magnesium Cl slow-release 64mg tablet PO PRN (00:25)
[2018-04-24] MEDS ORDERED: potassium Cl 40MEQ/NS 500ml 500 ML IV PRN ×2 (00:25)
[2018-04-24] MEDS ORDERED: magnesium 1gm/100ml D5W IVPB 100 ML IV PRN (00:25)
[2018-04-24] MEDS ORDERED: magnesium hydroxide 30ml (MOM) UD suspension PO PRN (00:25)
[2018-04-24] MEDS ORDERED: mag hydrox/Alum hydrox/simeth 30ml oral suspension PO PRN (00:25)
[2018-04-24 01:20] VITALS: BP 93/67
[2018-04-24 03:25] LABS: MAGNESIUM 2.1 MG/DL (1.5-2.4)
[2018-04-24] MEDS: ondansetron/PF 4mg/2ml inj IV PRN (06:46)
[2018-04-24] MEDS: furosemide 20MG tablet PO SCH ×2 (08:00→10:08)
[2018-04-24] MEDS: neomy sulf/bacitrac zn/polymixin b oint 14.2 gm tube TP SCH ×3 (08:00→20:15)
[2018-04-24] MEDS: lisinopril 2.5mg tablet PO SCH ×2 (08:00→10:08)
[2018-04-24] MEDS: metoprolol tartrate 25mg tablet PO SCH (08:00)
[2018-04-24] MEDS: K and/or MAG REPLACEMENT MC SCH (08:00)
[2018-04-24] MEDS: aspirin 81mg tablet.DR PO SCH (08:10)
[2018-04-24] MEDS: heparin, porcine 5000 units/ml vial SQ SCH ×2 (08:14→20:04)
[2018-04-24 10:00] VITALS: BP 109/80
[2018-04-24] MEDS: pantoprazole 40 MG vial IV SCH (12:03)
[2018-04-24 18:00] VITALS: BP 86/55
[2018-04-24] MEDS: metoprolol tartrate 12.5mg (1/2 tablet) PO SCH (20:00)
[2018-04-24] MEDS: ondansetron 4mg rapidly disintigrating tab PO PRN (20:04)
[2018-04-24 20:20] VITALS: BP 100/71
[2018-04-24 21:55] VITALS: BP 90/67
[2018-04-25 05:49] LABS: BASOPHILS # (AUTO) 0.1 X10'3 (0-0.2); BASOPHILS % (AUTO) 1.1 % (0-1); EOSINOPHILS # (AUTO) 0.1 X10'3 (0-0.9); EOSINOPHILS % (AUTO) 1.4 % (0-6); HEMATOCRIT 37.7 % (42.0-52.0); HEMOGLOBIN 13.1 g/dl (14.0-17.9); LYMPHOCYTES # (AUTO) 2.1 X10'3 (1.1-4.8); LYMPHOCYTES % (AUTO) 20.5 % (21-51); MEAN CORPUSCULAR HEMOGLOBIN 31.2 PG (27.0-31.0); MEAN CORPUSCULAR HGB CONC 34.7 % (33.0-36.5); MEAN CORPUSCULAR VOLUME 89.9 FL (78-98); MEAN PLATELET VOLUME 9.3 FL (7.4-10.4); MONOCYTES # (AUTO) 0.8 X10'3 (0-0.9); MONOCYTES % (AUTO) 7.9 % (2-12); NEUTROPHILS % (AUTO) 69.1 % (42-75); PLATELET COUNT 179 X10'3 (140-440); RED BLOOD COUNT 4.19 X10'6 (4.70-6.10); RED CELL DISTRIBUTION WIDTH 13.4 % (11.5-14.5); WHITE BLOOD COUNT 10.1 X10'3 (4.5-11.0)
[2018-04-25 06:13] LABS: ALANINE AMINOTRANSFERASE 454 U/L (12-78); ALBUMIN 2.8 G/DL (3.4-5.0); ALBUMIN/GLOBULIN RATIO 0.8 (1.1-1.5); ALKALINE PHOSPHATASE 122 IU/L (46-116); ANION GAP 12 (8-16); ASPARTATE AMINO TRANSFERASE 334 U/L (10-37); BILIRUBIN,TOTAL 1.9 MG/DL (0.1-1.0); BLOOD UREA NITROGEN 28 MG/DL (7-18); BUN/CREATININE RATIO 20.9 (5.4-32.0); CALCIUM 8.4 MG/DL (8.5-10.1); CHLORIDE 102 MMOL/L (99-107); CREATININE 1.34 MG/DL (0.60-1.10); GLUCOSE 86 MG/DL (70-104); MAGNESIUM 1.8 MG/DL (1.5-2.4); POTASSIUM 4.5 MMOL/L (3.5-5.1); SODIUM 136 MMOL/L (135-145); TOTAL CARBON DIOXIDE 22.4 MMOL/L (24-32); TOTAL PROTEIN 6.2 G/DL (6.4-8.2); eGFR 56 ML/MIN
[2018-04-25 07:20] VITALS: BP 117/73
[2018-04-25] MEDS: K and/or MAG REPLACEMENT MC SCH (08:00)
[2018-04-25] MEDS: aspirin 81mg tablet.DR PO SCH (08:07)
[2018-04-25] MEDS: furosemide 20MG tablet PO SCH (08:07)
[2018-04-25] MEDS: metoprolol tartrate 12.5mg (1/2 tablet) PO SCH (08:08)
[2018-04-25] MEDS: lisinopril 2.5mg tablet PO SCH (08:08)
[2018-04-25] MEDS: heparin, porcine 5000 units/ml vial SQ SCH ×2 (08:09→20:09)
[2018-04-25] MEDS: pantoprazole 40 MG vial IV SCH (08:09)
[2018-04-25] MEDS: neomy sulf/bacitrac zn/polymixin b oint 14.2 gm tube TP SCH ×3 (08:10→20:16)
[2018-04-25 10:00] VITALS: BP 107/81
[2018-04-25] MEDS: ondansetron 4mg rapidly disintigrating tab PO PRN ×2 (13:07→21:54)
[2018-04-25] MEDS ORDERED: metoprolol tartrate 12.5mg (1/2 tablet) PO ONE (14:00)
[2018-04-25] MEDS: furosemide 20 MG/2 ML vial IV SCH ×2 (14:14→20:09)
[2018-04-25] MEDS: acetaminophen 325mg tablet PO PRN ×2 (14:27→21:57)
[2018-04-25 15:00] VITALS: BP 102/70
[2018-04-25 18:00] VITALS: BP 90/66
[2018-04-25] MEDS: metoprolol tartrate 25mg tablet PO SCH (20:08)
[2018-04-25 22:00] VITALS: BP 101/72
[2018-04-26 05:44] LABS: BASOPHILS # (AUTO) 0.1 X10'3 (0-0.2); BASOPHILS % (AUTO) 1.5 % (0-1); EOSINOPHILS # (AUTO) 0.1 X10'3 (0-0.9); EOSINOPHILS % (AUTO) 1.4 % (0-6); HEMATOCRIT 37.8 % (42.0-52.0); LYMPHOCYTES # (AUTO) 1.9 X10'3 (1.1-4.8); LYMPHOCYTES % (AUTO) 22.7 % (21-51); MEAN CORPUSCULAR HEMOGLOBIN 31.1 PG (27.0-31.0); MEAN CORPUSCULAR HGB CONC 34.5 % (33.0-36.5); MEAN CORPUSCULAR VOLUME 90.3 FL (78-98); MEAN PLATELET VOLUME 9.4 FL (7.4-10.4); MONOCYTES # (AUTO) 0.8 X10'3 (0-0.9); MONOCYTES % (AUTO) 9.2 % (2-12); NEUTROPHILS # (AUTO) 5.3 X10'3 (1.8-7.7); NEUTROPHILS % (AUTO) 65.2 % (42-75); PLATELET COUNT 165 X10'3 (140-440); RED BLOOD COUNT 4.18 X10'6 (4.70-6.10); RED CELL DISTRIBUTION WIDTH 13.4 % (11.5-14.5); WHITE BLOOD COUNT 8.2 X10'3 (4.5-11.0)
[2018-04-26 06:00] VITALS: BP 97/69
[2018-04-26 06:09] LABS: ALANINE AMINOTRANSFERASE 357 U/L (12-78); ALBUMIN 2.7 G/DL (3.4-5.0); ALBUMIN/GLOBULIN RATIO 0.7 (1.1-1.5); ALKALINE PHOSPHATASE 121 IU/L (46-116); ANION GAP 6 (8-16); ASPARTATE AMINO TRANSFERASE 162 U/L (10-37); BILIRUBIN,TOTAL 1.1 MG/DL (0.1-1.0); BLOOD UREA NITROGEN 26 MG/DL (7-18); BUN/CREATININE RATIO 18.3 (5.4-32.0); CALCIUM 8.6 MG/DL (8.5-10.1); CHLORIDE 102 MMOL/L (99-107); CREATININE 1.42 MG/DL (0.60-1.10); GLUCOSE 87 MG/DL (70-104); MAGNESIUM 1.7 MG/DL (1.5-2.4); POTASSIUM 4.1 MMOL/L (3.5-5.1); SODIUM 137 MMOL/L (135-145); TOTAL CARBON DIOXIDE 28.9 MMOL/L (24-32); TOTAL PROTEIN 6.4 G/DL (6.4-8.2); eGFR 53 ML/MIN
[2018-04-26] MEDS: lisinopril 2.5mg tablet PO SCH (08:00)
[2018-04-26] MEDS: neomy sulf/bacitrac zn/polymixin b oint 14.2 gm tube TP SCH ×3 (08:00→21:00)
[2018-04-26] MEDS: K and/or MAG REPLACEMENT MC SCH (08:00)
[2018-04-26] MEDS: metoprolol tartrate 25mg tablet PO SCH ×2 (09:19→21:45)
[2018-04-26] MEDS: furosemide 20 MG/2 ML vial IV SCH ×2 (09:19→21:45)
[2018-04-26] MEDS: aspirin 81mg tablet.DR PO SCH (09:20)
[2018-04-26] MEDS: heparin, porcine 5000 units/ml vial SQ SCH ×2 (09:20→21:45)
[2018-04-26] MEDS: pantoprazole 40mg Tablet.DR PO SCH (09:20)
[2018-04-26 10:00] VITALS: BP 101/75
[2018-04-26 18:00] VITALS: BP 103/77
[2018-04-26] MEDS: ondansetron 4mg rapidly disintigrating tab PO PRN (21:46)
[2018-04-26 22:00] VITALS: BP 115/79
[2018-04-27 06:00] VITALS: BP 95/65
[2018-04-27 06:27] LABS: ALANINE AMINOTRANSFERASE 318 U/L (12-78); ALBUMIN 2.7 G/DL (3.4-5.0); ALBUMIN/GLOBULIN RATIO 0.7 (1.1-1.5); ALKALINE PHOSPHATASE 122 IU/L (46-116); ANION GAP 6 (8-16); ASPARTATE AMINO TRANSFERASE 123 U/L (10-37); BLOOD UREA NITROGEN 26 MG/DL (7-18); BUN/CREATININE RATIO 17.4 (5.4-32.0); CALCIUM 8.5 MG/DL (8.5-10.1); CHLORIDE 102 MMOL/L (99-107); CREATININE 1.49 MG/DL (0.60-1.10); GLUCOSE 96 MG/DL (70-104); MAGNESIUM 1.7 MG/DL (1.5-2.4); POTASSIUM 3.4 MMOL/L (3.5-5.1); SODIUM 138 MMOL/L (135-145); TOTAL CARBON DIOXIDE 29.9 MMOL/L (24-32); TOTAL PROTEIN 6.4 G/DL (6.4-8.2); eGFR 50 ML/MIN
[2018-04-27 07:07] LABS: BASOPHILS # (AUTO) 0.1 X10'3 (0-0.2); BASOPHILS % (AUTO) 0.9 % (0-1); EOSINOPHILS # (AUTO) 0.1 X10'3 (0-0.9); EOSINOPHILS % (AUTO) 1.3 % (0-6); HEMATOCRIT 38.3 % (42.0-52.0); HEMOGLOBIN 13.1 g/dl (14.0-17.9); LYMPHOCYTES # (AUTO) 2.2 X10'3 (1.1-4.8); LYMPHOCYTES % (AUTO) 24.3 % (21-51); MEAN CORPUSCULAR HEMOGLOBIN 30.6 PG (27.0-31.0); MEAN CORPUSCULAR HGB CONC 34.1 % (33.0-36.5); MEAN CORPUSCULAR VOLUME 89.6 FL (78-98); MEAN PLATELET VOLUME 9.4 FL (7.4-10.4); MONOCYTES % (AUTO) 10.5 % (2-12); NEUTROPHILS # (AUTO) 5.7 X10'3 (1.8-7.7); PLATELET COUNT 202 X10'3 (140-440); RED BLOOD COUNT 4.28 X10'6 (4.70-6.10); RED CELL DISTRIBUTION WIDTH 13.3 % (11.5-14.5); WHITE BLOOD COUNT 9.1 X10'3 (4.5-11.0)
[2018-04-27] MEDS: metoprolol succinate 25mg (24-HOUR) SR. Tablet PO SCH (08:00)
[2018-04-27] MEDS: K and/or MAG REPLACEMENT MC SCH (08:00)
[2018-04-27] MEDS ORDERED: metoprolol succinate 25mg (24-HOUR) SR. Tablet PO SCH (08:00)
[2018-04-27] MEDS: furosemide 20 MG/2 ML vial IV SCH ×3 (08:00→22:28)
[2018-04-27] MEDS: pantoprazole 40mg Tablet.DR PO SCH (08:47)
[2018-04-27] MEDS: aspirin 81mg tablet.DR PO SCH (08:47)
[2018-04-27] MEDS: neomy sulf/bacitrac zn/polymixin b oint 14.2 gm tube TP SCH ×3 (08:48→21:00)
[2018-04-27] MEDS: heparin, porcine 5000 units/ml vial SQ SCH ×2 (08:50→22:27)
[2018-04-27] MEDS: potassium Cl 20 mEq SR tablet PO PRN ×3 (08:59→22:28)
[2018-04-27 10:00] VITALS: BP 102/68
[2018-04-27 10:24] VITALS: BP 114/81
[2018-04-27] MEDS: acetaminophen 325mg tablet PO PRN ×2 (13:07→20:54)
[2018-04-27] MEDS: ondansetron/PF 4mg/2ml inj IV PRN (14:59)
[2018-04-27 18:00] VITALS: BP 115/68
[2018-04-27] MEDS ORDERED: lisinopril 2.5mg tablet PO SCH (21:00)
[2018-04-27 22:00] VITALS: BP 109/80
[2018-04-28] MEDS: potassium Cl 20 mEq SR tablet PO PRN (04:36)
[2018-04-28 06:00] VITALS: BP 109/80
[2018-04-28] MEDS: neomy sulf/bacitrac zn/polymixin b oint 14.2 gm tube TP SCH ×2 (08:00→12:43)
[2018-04-28] MEDS: K and/or MAG REPLACEMENT MC SCH (08:00)
[2018-04-28] MEDS: heparin, porcine 5000 units/ml vial SQ SCH (08:42)
[2018-04-28] MEDS: aspirin 81mg tablet.DR PO SCH (08:43)
[2018-04-28] MEDS: pantoprazole 40mg Tablet.DR PO SCH (08:43)
[2018-04-28] MEDS: furosemide 20 MG/2 ML vial IV SCH (08:47)
[2018-04-28] MEDS: metoprolol succinate 25mg (24-HOUR) SR. Tablet PO SCH (08:47)
== END 2018-04-28 13:35 | disposition home or self-care (01) | DRG 194 ==
LOC: ER 20:59 → ED HOLD 04-24 00:24 → OBSVTOIN 04-24 00:24 → ORTHO 4S 04-24 01:15
PROVIDERS: ADMIT Hospitalist; ATTEND Family Medicine
DX: I13.0 Hypertensive heart and chronic kidney disease with heart failure and stage 1 through stage 4 chronic kidney disease, or unspecified chronic kidney disease (principal); N17.9 Acute kidney failure, unspecified; I42.7 Cardiomyopathy due to drug and external agent; N18.3 Chronic kidney disease, stage 3 (moderate); F12.90 Cannabis use, unspecified, uncomplicated; I50.23 Acute on chronic systolic (congestive) heart failure; F15.90 Other stimulant use, unspecified, uncomplicated; I25.10 Atherosclerotic heart disease of native coronary artery without angina pectoris; K21.9 Gastro-esophageal reflux disease without esophagitis; R74.0 Nonspecific elevation of levels of transaminase and lactic acid dehydrogenase [LDH]; Z60.2 Problems related to living alone; Z79.899 Other long term (current) drug therapy; Z87.01 Personal history of pneumonia (recurrent); Z87.442 Personal history of urinary calculi; Z91.19 Patient's noncompliance with other medical treatment and regimen; Z79.82 Long term (current) use of aspirin; Z71.51 Drug abuse counseling and surveillance of drug abuser
CPT/HCPCS: 36415; 71045; 76700; 80053; 80305; 83735; 83880; 84484; 85025; 85610; 85730; 87070; 93005; 96361; 96374; 96375; 99291; C9113; J1644; J1940; J2060; J2405; J3490

== ENCOUNTER 2018-05-05 18:12 | Emergency (ER) | payer MEDICAID ==
[~2018-05-05] VITALS: Ht 182.9 cm; Wt 88.6 kg
[~2018-05-05 18:12] MED LIST changes: -LEVO500T89 PO; -NO HOME MEDS
[2018-05-05] MEDS ORDERED: nitroGLYCERIN 0.4mg SUBLingual tab SL PRN (18:30)
[2018-05-05 19:04] LABS: BASOPHILS # (AUTO) 0.1 X10'3 (0-0.2); BASOPHILS % (AUTO) 0.6 % (0-1); EOSINOPHILS % (AUTO) 0.4 % (0-6); HEMATOCRIT 42.4 % (42.0-52.0); HEMOGLOBIN 14.2 g/dl (14.0-17.9); LYMPHOCYTES # (AUTO) 3.4 X10'3 (1.1-4.8); MEAN CORPUSCULAR HEMOGLOBIN 29.9 PG (27.0-31.0); MEAN CORPUSCULAR HGB CONC 33.4 % (33.0-36.5); MEAN CORPUSCULAR VOLUME 89.5 FL (78-98); MEAN PLATELET VOLUME 8.7 FL (7.4-10.4); MONOCYTES # (AUTO) 0.8 X10'3 (0-0.9); MONOCYTES % (AUTO) 7.4 % (2-12); NEUTROPHILS # (AUTO) 6.7 X10'3 (1.8-7.7); NEUTROPHILS % (AUTO) 60.6 % (42-75); PLATELET COUNT 394 X10'3 (140-440); RED BLOOD COUNT 4.74 X10'6 (4.70-6.10); RED CELL DISTRIBUTION WIDTH 15.2 % (11.5-14.5)
[2018-05-05 19:17] LABS: INR 1.4 INR; PARTIAL THROMBOPLASTIN TIME 26 SECONDS (22-32); PROTHROMBIN TIME 14.4 SECONDS (9.0-12.0)
[2018-05-05 19:20] LABS: ALANINE AMINOTRANSFERASE 126 U/L (12-78); ALBUMIN 3.2 G/DL (3.4-5.0); ALBUMIN/GLOBULIN RATIO 0.8 (1.1-1.5); ALKALINE PHOSPHATASE 144 IU/L (46-116); ANION GAP 12 (8-16); ASPARTATE AMINO TRANSFERASE 54 U/L (10-37); BILIRUBIN,TOTAL 1.2 MG/DL (0.1-1.0); BLOOD UREA NITROGEN 26 MG/DL (7-18); BUN/CREATININE RATIO 16.6 (5.4-32.0); CALCIUM 8.5 MG/DL (8.5-10.1); CHLORIDE 96 MMOL/L (99-107); CREATININE 1.57 MG/DL (0.60-1.10); GLUCOSE 103 MG/DL (70-104); POTASSIUM 3.9 MMOL/L (3.5-5.1); SODIUM 131 MMOL/L (135-145); TOTAL CARBON DIOXIDE 23.3 MMOL/L (24-32); TOTAL PROTEIN 7.1 G/DL (6.4-8.2); eGFR 47 ML/MIN
[2018-05-05] MEDS ORDERED: furosemide 10 MG/1 ML 10ml inj IV ONE (22:35)
[2018-05-05 23:29] LABS: CLARITY,URINE CLEAR (Clear); COLOR,URINE YELLOW (Yellow); GLUCOSE, URINE NEGATIVE (Neg); KETONES,URINE NEGATIVE (Neg); LEUKOCYTE ESTERASE ,URINE NEGATIVE (Neg); NITRITES, URINE NEGATIVE (Neg); OCCULT BLOOD,URINE NEGATIVE (Neg); PROTEIN,URINE NEGATIVE (Neg); UA COLLECTION TYPE URINAL; UROBILINOGEN,URINE 0.2 E.U/dL (0.2-1.0)
[2018-05-05 23:42] LABS: URINE AMPHETAMINE SCREEN NEGATIVE (Neg); URINE BARBITUATE SCREEN NEGATIVE (Neg); URINE BENZODIAZEPINES SCREEN NEGATIVE (Neg); URINE CANNABINOID SCREEN POSITIVE (Neg); URINE COCAINE SCREEN NEGATIVE (Neg); URINE METHADONE SCREEN NEGATIVE (Neg); URINE OPIATE SCREEN NEGATIVE (Neg); URINE PHENCYCLIDINE SCREEN NEGATIVE (Neg)
[2018-05-06 00:57] VITALS: BP 98/62
== END 2018-05-06 01:01 | disposition home or self-care (01) ==
LOC: ER 18:13
DX: I50.9 Heart failure, unspecified (principal); K21.9 Gastro-esophageal reflux disease without esophagitis; F12.90 Cannabis use, unspecified, uncomplicated; I51.7 Cardiomegaly; R00.0 Tachycardia, unspecified; Z60.2 Problems related to living alone; Z98.890 Other specified postprocedural states; Z79.82 Long term (current) use of aspirin; Z79.899 Other long term (current) drug therapy
CPT/HCPCS: 36415; 71045; 80053; 80305; 81003; 83880; 84484; 85025; 85610; 85730; 93005; 96374; 99285; J1940

== ENCOUNTER 2018-05-18 09:57 | Inpatient (IN) | payer MEDICAID ==
[~2018-05-18] VITALS: Ht 182.9 cm; Wt 92.5 kg
[2018-05-18] MEDS ORDERED: furosemide 20 MG/2 ML vial IV ONE (10:15)
[2018-05-18] MEDS ORDERED: furosemide 10 MG/1 ML 10ml inj IV ONE (10:15)
[2018-05-18 10:30] LABS: BASOPHILS # (AUTO) 0.1 X10'3 (0-0.2); BASOPHILS % (AUTO) 1.4 % (0-1); EOSINOPHILS # (AUTO) 0.1 X10'3 (0-0.9); EOSINOPHILS % (AUTO) 1.1 % (0-6); HEMATOCRIT 46.2 % (42.0-52.0); HEMOGLOBIN 15.1 g/dl (14.0-17.9); LYMPHOCYTES # (AUTO) 2.1 X10'3 (1.1-4.8); LYMPHOCYTES % (AUTO) 20.7 % (21-51); MEAN CORPUSCULAR HEMOGLOBIN 29.6 PG (27.0-31.0); MEAN CORPUSCULAR HGB CONC 32.7 % (33.0-36.5); MEAN CORPUSCULAR VOLUME 90.5 FL (78-98); MEAN PLATELET VOLUME 8.3 FL (7.4-10.4); MONOCYTES # (AUTO) 0.6 X10'3 (0-0.9); MONOCYTES % (AUTO) 5.4 % (2-12); NEUTROPHILS # (AUTO) 7.3 X10'3 (1.8-7.7); NEUTROPHILS % (AUTO) 71.4 % (42-75); PLATELET COUNT 284 X10'3 (140-440); RED BLOOD COUNT 5.11 X10'6 (4.70-6.10); RED CELL DISTRIBUTION WIDTH 15.6 % (11.5-14.5); WHITE BLOOD COUNT 10.3 X10'3 (4.5-11.0)
[2018-05-18 10:45] LABS: INR 1.5 INR; PARTIAL THROMBOPLASTIN TIME 26 SECONDS (22-32); PROTHROMBIN TIME 14.7 SECONDS (9.0-12.0)
[2018-05-18 10:48] LABS: ALANINE AMINOTRANSFERASE 65 U/L (12-78); ALBUMIN 3.3 G/DL (3.4-5.0); ALBUMIN/GLOBULIN RATIO 0.8 (1.1-1.5); ALKALINE PHOSPHATASE 108 IU/L (46-116); ANION GAP 12 (8-16); ASPARTATE AMINO TRANSFERASE 33 U/L (10-37); BILIRUBIN,TOTAL 2.1 MG/DL (0.1-1.0); BLOOD UREA NITROGEN 38 MG/DL (7-18); BUN/CREATININE RATIO 23.9 (5.4-32.0); CALCIUM 9.4 MG/DL (8.5-10.1); CHLORIDE 103 MMOL/L (99-107); CREATININE 1.59 MG/DL (0.60-1.10); GLUCOSE 93 MG/DL (70-104); POTASSIUM 4.5 MMOL/L (3.5-5.1); SODIUM 137 MMOL/L (135-145); TOTAL CARBON DIOXIDE 21.8 MMOL/L (24-32); TOTAL PROTEIN 7.4 G/DL (6.4-8.2); eGFR 46 ML/MIN
[2018-05-18] MEDS ORDERED: magnesium 1gm/100ml D5W IVPB 100 ML IV PRN (12:35)
[2018-05-18] MEDS ORDERED: ondansetron/PF 4mg/2ml inj IV PRN (12:35)
[2018-05-18] MEDS ORDERED: morphine 2 MG/ML inj. syringe IV PRN (12:35)
[2018-05-18] MEDS ORDERED: potassium Cl 20 mEq SR tablet PO PRN ×2 (12:35)
[2018-05-18] MEDS ORDERED: acetaminophen 325mg tablet PO PRN (12:35)
[2018-05-18] MEDS ORDERED: potassium Cl 40MEQ/NS 500ml 500 ML IV PRN ×2 (12:35)
[2018-05-18] MEDS ORDERED: magnesium Cl slow-release 64mg tablet PO PRN (12:35)
[2018-05-18] MEDS ORDERED: magnesium 4gm in 100ml NS 100 ML IV PRN (12:35)
[2018-05-18 13:27] LABS: URINE AMPHETAMINE SCREEN NEGATIVE (Neg); URINE BARBITUATE SCREEN NEGATIVE (Neg); URINE BENZODIAZEPINES SCREEN NEGATIVE (Neg); URINE CANNABINOID SCREEN POSITIVE (Neg); URINE COCAINE SCREEN NEGATIVE (Neg); URINE METHADONE SCREEN NEGATIVE (Neg); URINE OPIATE SCREEN NEGATIVE (Neg); URINE PHENCYCLIDINE SCREEN NEGATIVE (Neg)
[2018-05-18 15:10] VITALS: BP 118/78
[2018-05-18 18:00] VITALS: BP 120/87
[2018-05-18] MEDS: heparin, porcine 5000 units/ml vial SQ SCH (19:25)
[2018-05-18] MEDS: furosemide 10 MG/1 ML 10ml inj IV SCH (19:26)
[2018-05-19] VITALS: BP 111/74
[2018-05-19 04:57] LABS: BASOPHILS # (AUTO) 0.1 X10'3 (0-0.2); BASOPHILS % (AUTO) 0.7 % (0-1); EOSINOPHILS # (AUTO) 0.2 X10'3 (0-0.9); EOSINOPHILS % (AUTO) 2.6 % (0-6); HEMATOCRIT 39.5 % (42.0-52.0); LYMPHOCYTES # (AUTO) 2.1 X10'3 (1.1-4.8); LYMPHOCYTES % (AUTO) 26.6 % (21-51); MEAN CORPUSCULAR HEMOGLOBIN 29.6 PG (27.0-31.0); MEAN CORPUSCULAR HGB CONC 32.9 % (33.0-36.5); MEAN CORPUSCULAR VOLUME 89.9 FL (78-98); MEAN PLATELET VOLUME 8.3 FL (7.4-10.4); MONOCYTES # (AUTO) 0.6 X10'3 (0-0.9); MONOCYTES % (AUTO) 7.7 % (2-12); NEUTROPHILS % (AUTO) 62.4 % (42-75); PLATELET COUNT 219 X10'3 (140-440); RED BLOOD COUNT 4.39 X10'6 (4.70-6.10); RED CELL DISTRIBUTION WIDTH 15.5 % (11.5-14.5)
[2018-05-19 05:13] LABS: ALBUMIN 2.7 G/DL (3.4-5.0); ANION GAP 13 (8-16); BLOOD UREA NITROGEN 37 MG/DL (7-18); BUN/CREATININE RATIO 22.3 (5.4-32.0); CALCIUM 8.6 MG/DL (8.5-10.1); CHLORIDE 104 MMOL/L (99-107); CREATININE 1.66 MG/DL (0.60-1.10); GLUCOSE 81 MG/DL (70-104); MAGNESIUM 1.8 MG/DL (1.5-2.4); POTASSIUM 3.5 MMOL/L (3.5-5.1); SODIUM 141 MMOL/L (135-145); TOTAL CARBON DIOXIDE 24.4 MMOL/L (24-32); eGFR 44 ML/MIN
[2018-05-19 07:00] VITALS: BP 103/69
[2018-05-19] MEDS: K and/or MAG REPLACEMENT MC SCH (08:00)
[2018-05-19] MEDS: furosemide 10 MG/1 ML 10ml inj IV SCH ×2 (08:45→19:31)
[2018-05-19] MEDS: heparin, porcine 5000 units/ml vial SQ SCH ×2 (08:45→19:32)
[2018-05-19 11:37] VITALS: BP 118/84
[2018-05-19] MEDS ORDERED: nitroGLYCERIN 0.4mg SUBLingual tab SL PRN (15:00)
[2018-05-19 18:00] VITALS: BP 111/78
[2018-05-19] MEDS: metoprolol tartrate 25mg tablet PO SCH (19:31)
[2018-05-20] VITALS: BP 100/72
[2018-05-20 05:10] LABS: BASOPHILS % (AUTO) 0.6 % (0-1); EOSINOPHILS # (AUTO) 0.2 X10'3 (0-0.9); EOSINOPHILS % (AUTO) 2.6 % (0-6); HEMATOCRIT 40.4 % (42.0-52.0); HEMOGLOBIN 13.2 g/dl (14.0-17.9); LYMPHOCYTES # (AUTO) 2.2 X10'3 (1.1-4.8); LYMPHOCYTES % (AUTO) 30.6 % (21-51); MEAN CORPUSCULAR HEMOGLOBIN 29.4 PG (27.0-31.0); MEAN CORPUSCULAR HGB CONC 32.7 % (33.0-36.5); MEAN CORPUSCULAR VOLUME 89.9 FL (78-98); MEAN PLATELET VOLUME 8.4 FL (7.4-10.4); MONOCYTES # (AUTO) 0.5 X10'3 (0-0.9); MONOCYTES % (AUTO) 6.4 % (2-12); NEUTROPHILS # (AUTO) 4.3 X10'3 (1.8-7.7); NEUTROPHILS % (AUTO) 59.8 % (42-75); PLATELET COUNT 222 X10'3 (140-440); RED CELL DISTRIBUTION WIDTH 15.6 % (11.5-14.5); WHITE BLOOD COUNT 7.3 X10'3 (4.5-11.0)
[2018-05-20 05:25] LABS: ALBUMIN 2.7 G/DL (3.4-5.0); ANION GAP 9 (8-16); BLOOD UREA NITROGEN 38 MG/DL (7-18); BUN/CREATININE RATIO 22.4 (5.4-32.0); CALCIUM 8.8 MG/DL (8.5-10.1); CHLORIDE 102 MMOL/L (99-107); GLUCOSE 91 MG/DL (70-104); MAGNESIUM 1.9 MG/DL (1.5-2.4); POTASSIUM 3.3 MMOL/L (3.5-5.1); SODIUM 139 MMOL/L (135-145); eGFR 43 ML/MIN
[2018-05-20 07:00] VITALS: BP 108/83
[2018-05-20] MEDS: metoprolol tartrate 25mg tablet PO SCH (07:05)
[2018-05-20] MEDS: furosemide 10 MG/1 ML 10ml inj IV SCH (07:10)
[2018-05-20] MEDS: heparin, porcine 5000 units/ml vial SQ SCH (07:11)
[2018-05-20] MEDS: K and/or MAG REPLACEMENT MC SCH (07:19)
[2018-05-20] MEDS ORDERED: lisinopril 2.5mg tablet PO SCH (08:00)
[2018-05-20] MEDS ORDERED: aspirin 81mg tablet.DR PO SCH (08:00)
[2018-05-20] MEDS ORDERED: FURO-149 PO (10:48)
[2018-05-20] MEDS ORDERED: POTA20TA19 PO (10:48)
[2018-05-20 11:41] VITALS: BP 98/74
== END 2018-05-20 12:45 | disposition home or self-care (01) | DRG 194 ==
LOC: ER 09:57 → ED HOLD 12:33 → EDBEDREQ 14:15 → SUR 3N 15:40
PROVIDERS: ADMIT Internal Medicine; ATTEND Family Medicine
DX: I13.0 Hypertensive heart and chronic kidney disease with heart failure and stage 1 through stage 4 chronic kidney disease, or unspecified chronic kidney disease (principal); I42.7 Cardiomyopathy due to drug and external agent; I50.23 Acute on chronic systolic (congestive) heart failure; K21.9 Gastro-esophageal reflux disease without esophagitis; F15.90 Other stimulant use, unspecified, uncomplicated; N18.9 Chronic kidney disease, unspecified; F12.90 Cannabis use, unspecified, uncomplicated; G89.29 Other chronic pain; M54.9 Dorsalgia, unspecified; F41.9 Anxiety disorder, unspecified; Z59.0 Homelessness; Z87.442 Personal history of urinary calculi; Z87.01 Personal history of pneumonia (recurrent); Z79.899 Other long term (current) drug therapy; Z91.19 Patient's noncompliance with other medical treatment and regimen
CPT/HCPCS: 36415; 71045; 80048; 80053; 80305; 83735; 83880; 84484; 85025; 85610; 85730; 87070; 93005; G0378; J1644; J1940

== ENCOUNTER 2018-05-24 10:55 | Emergency (ER) | payer MEDICAID ==
[~2018-05-24] VITALS: Ht 182.9 cm; Wt 89.0 kg
[~2018-05-24 10:55] MED LIST changes: +FURO-149 PO; -FURO-150 PO; -NEOM28.37 TP; +POTA20TA19 PO
[2018-05-24] MEDS ORDERED: normal saline 1000ML IV soln IVB ONE (11:35)
[2018-05-24] MEDS ORDERED: ondansetron/PF 4mg/2ml inj IV ONE (11:35)
[2018-05-24 12:04] LABS: BASOPHILS # (AUTO) 0.1 X10'3 (0-0.2); BASOPHILS % (AUTO) 1.1 % (0-1); EOSINOPHILS # (AUTO) 0.1 X10'3 (0-0.9); EOSINOPHILS % (AUTO) 1.3 % (0-6); HEMATOCRIT 46.5 % (42.0-52.0); HEMOGLOBIN 15.1 g/dl (14.0-17.9); LYMPHOCYTES # (AUTO) 1.9 X10'3 (1.1-4.8); LYMPHOCYTES % (AUTO) 20.9 % (21-51); MEAN CORPUSCULAR HEMOGLOBIN 29.2 PG (27.0-31.0); MEAN CORPUSCULAR HGB CONC 32.5 % (33.0-36.5); MEAN PLATELET VOLUME 8.6 FL (7.4-10.4); MONOCYTES # (AUTO) 0.6 X10'3 (0-0.9); MONOCYTES % (AUTO) 6.2 % (2-12); NEUTROPHILS # (AUTO) 6.4 X10'3 (1.8-7.7); NEUTROPHILS % (AUTO) 70.5 % (42-75); PLATELET COUNT 241 X10'3 (140-440); RED BLOOD COUNT 5.17 X10'6 (4.70-6.10); RED CELL DISTRIBUTION WIDTH 15.9 % (11.5-14.5); WHITE BLOOD COUNT 9.1 X10'3 (4.5-11.0)
[2018-05-24 12:18] LABS: INR 1.6 INR; PROTHROMBIN TIME 15.5 SECONDS (9.0-12.0)
[2018-05-24 12:21] LABS: ALANINE AMINOTRANSFERASE 58 U/L (12-78); ALBUMIN 3.2 G/DL (3.4-5.0); ALBUMIN/GLOBULIN RATIO 0.8 (1.1-1.5); ALKALINE PHOSPHATASE 84 IU/L (46-116); ANION GAP 12 (8-16); ASPARTATE AMINO TRANSFERASE 35 U/L (10-37); BILIRUBIN,TOTAL 2.2 MG/DL (0.1-1.0); BLOOD UREA NITROGEN 30 MG/DL (7-18); BUN/CREATININE RATIO 19.9 (5.4-32.0); CALCIUM 9.3 MG/DL (8.5-10.1); CHLORIDE 98 MMOL/L (99-107); CREATININE 1.51 MG/DL (0.60-1.10); GLUCOSE 147 MG/DL (70-104); POTASSIUM 4.3 MMOL/L (3.5-5.1); SODIUM 133 MMOL/L (135-145); TOTAL CARBON DIOXIDE 23.3 MMOL/L (24-32); TOTAL PROTEIN 7.1 G/DL (6.4-8.2); eGFR 49 ML/MIN
[2018-05-24 12:26] LABS: MAGNESIUM 2.4 MG/DL (1.5-2.4)
[2018-05-24] MEDS ORDERED: ONDA4TAB12 PO (13:19)
[2018-05-24 13:38] VITALS: BP 110/71
== END 2018-05-24 14:13 | disposition home or self-care (01) ==
LOC: ER 10:56
DX: R42 Dizziness and giddiness (principal); M79.10 Myalgia, unspecified site; R06.02 Shortness of breath; R11.2 Nausea with vomiting, unspecified; R19.7 Diarrhea, unspecified; R00.0 Tachycardia, unspecified; R09.89 Other specified symptoms and signs involving the circulatory and respiratory systems; K21.9 Gastro-esophageal reflux disease without esophagitis; I50.9 Heart failure, unspecified; F12.90 Cannabis use, unspecified, uncomplicated; F15.90 Other stimulant use, unspecified, uncomplicated; Z87.442 Personal history of urinary calculi; Z79.82 Long term (current) use of aspirin; Z79.899 Other long term (current) drug therapy; Z60.2 Problems related to living alone
CPT/HCPCS: 36415; 71045; 80053; 83735; 83880; 84484; 85025; 85610; 93005; 96374; 99285; J2405

== ENCOUNTER 2018-05-30 02:08 | Emergency (ER) | payer MEDICAID ==
[~2018-05-30] VITALS: Ht 182.9 cm; Wt 89.0 kg
[~2018-05-30 02:08] MED LIST changes: +ONDA4TAB12 PO
[2018-05-30] MEDS ORDERED: aspirin 81mg tab.chew PO ONE (02:50)
[2018-05-30 03:25] LABS: BASOPHILS # (AUTO) 0.1 X10'3 (0-0.2); BASOPHILS % (AUTO) 1.2 % (0-1); EOSINOPHILS # (AUTO) 0.1 X10'3 (0-0.9); EOSINOPHILS % (AUTO) 0.7 % (0-6); HEMATOCRIT 46.4 % (42.0-52.0); HEMOGLOBIN 14.9 g/dl (14.0-17.9); LYMPHOCYTES # (AUTO) 2.8 X10'3 (1.1-4.8); LYMPHOCYTES % (AUTO) 32.3 % (21-51); MEAN CORPUSCULAR HEMOGLOBIN 28.9 PG (27.0-31.0); MEAN CORPUSCULAR VOLUME 90.1 FL (78-98); MEAN PLATELET VOLUME 9.5 FL (7.4-10.4); MONOCYTES # (AUTO) 0.6 X10'3 (0-0.9); MONOCYTES % (AUTO) 7.4 % (2-12); NEUTROPHILS % (AUTO) 58.4 % (42-75); PLATELET COUNT 277 X10'3 (140-440); RED BLOOD COUNT 5.15 X10'6 (4.70-6.10); RED CELL DISTRIBUTION WIDTH 16.3 % (11.5-14.5); WHITE BLOOD COUNT 8.6 X10'3 (4.5-11.0)
[2018-05-30 03:41] LABS: ALANINE AMINOTRANSFERASE 75 U/L (12-78); ALBUMIN 3.2 G/DL (3.4-5.0); ALBUMIN/GLOBULIN RATIO 0.8 (1.1-1.5); ALKALINE PHOSPHATASE 98 IU/L (46-116); ANION GAP 10 (8-16); ASPARTATE AMINO TRANSFERASE 44 U/L (10-37); BILIRUBIN,TOTAL 1.3 MG/DL (0.1-1.0); BLOOD UREA NITROGEN 35 MG/DL (7-18); BUN/CREATININE RATIO 21.3 (5.4-32.0); CALCIUM 8.9 MG/DL (8.5-10.1); CHLORIDE 97 MMOL/L (99-107); CREATININE 1.64 MG/DL (0.60-1.10); GLUCOSE 108 MG/DL (70-104); POTASSIUM 4.3 MMOL/L (3.5-5.1); SODIUM 133 MMOL/L (135-145); TOTAL CARBON DIOXIDE 25.6 MMOL/L (24-32); eGFR 45 ML/MIN
[2018-05-30 03:51] LABS: MAGNESIUM 2.2 MG/DL (1.5-2.4)
[2018-05-30] MEDS ORDERED: furosemide 10 MG/1 ML 10ml inj IV ONE (05:15)
[2018-05-30 09:01] VITALS: BP 110/72
== END 2018-05-30 09:07 | disposition home or self-care (01) ==
LOC: ER 02:09
DX: I13.0 Hypertensive heart and chronic kidney disease with heart failure and stage 1 through stage 4 chronic kidney disease, or unspecified chronic kidney disease (principal); N18.9 Chronic kidney disease, unspecified; I50.23 Acute on chronic systolic (congestive) heart failure; K21.9 Gastro-esophageal reflux disease without esophagitis; G89.29 Other chronic pain; M54.9 Dorsalgia, unspecified; F12.90 Cannabis use, unspecified, uncomplicated; F15.90 Other stimulant use, unspecified, uncomplicated; Z79.82 Long term (current) use of aspirin
CPT/HCPCS: 36415; 71045; 80053; 83735; 83880; 84484; 85025; 93005; 96374; 99285; J1940